=== PATIENT | male | born 1955 | race Caucasian/White ===

== ENCOUNTER 2021-09-13 12:46 | Inpatient (IN) | payer MEDICARE, OTHER ==
[2021-09-13] MEDS ORDERED: Acetaminophen 325 MG Tab PO PRN (13:06)
[2021-09-13] MEDS: Sodium Chloride 0.9% 10 ML Syringe FLUSH PRN ×2 (14:44→16:16)
[2021-09-13] MEDS: Pantoprazole 40 MG Vial IVPUSH SCH ×2 (14:44→20:15)
[2021-09-13] MEDS: Sodium Chloride 0.9% 1,000 ML IV SCH (14:49)
[2021-09-13] MEDS: Ondansetron 4 MG/2 ML SDV IV PRN (16:16)
[2021-09-14] MEDS: Sodium Chloride 0.9% 1,000 ML IV SCH ×2 (00:59→08:35)
[2021-09-14 07:13] LABS: ANION GAP 11.9 mmol/L (5-15)
[2021-09-14] MEDS ORDERED: Potassium Chloride 10 MEQ Tab.ER PO STA (07:53)
[2021-09-14] MEDS: Ondansetron 4 MG/2 ML SDV IV PRN (08:35)
[2021-09-14] MEDS: Cyanocobalamin (Vitamin B12) 1,000 MCG Tab PO SCH (08:35)
[2021-09-14] MEDS: Pantoprazole 40 MG Vial IVPUSH SCH ×2 (08:35→20:20)
[2021-09-14] MEDS: Cholecalciferol (Vitamin D3) 25 MCG Tab PO SCH (08:36)
[2021-09-14] MEDS: Calcium Carbonate 750 MG Tab.Chew PO SCH (08:36)
[2021-09-14] MEDS: Sodium Chloride 0.9% 10 ML Syringe FLUSH PRN ×2 (08:39→20:20)
[2021-09-14] MEDS: Potassium Chloride 10 MEQ Tab.ER PO SCH ×2 (14:19→17:56)
[2021-09-14] MEDS ORDERED: Iopamidol 755 Mg/ML 100 ML Bottle IVPUSH ONE (14:26)
[2021-09-15 06:44] LABS: ANION GAP 12.6 mmol/L (5-15)
[2021-09-15] MEDS: Sodium Chloride 0.9% 10 ML Syringe FLUSH PRN ×2 (07:39→13:01)
[2021-09-15] MEDS: Cyanocobalamin (Vitamin B12) 1,000 MCG Tab PO SCH (07:39)
[2021-09-15] MEDS: Potassium Chloride 10 MEQ Tab.ER PO SCH ×2 (07:39→17:59)
[2021-09-15] MEDS: Cholecalciferol (Vitamin D3) 25 MCG Tab PO SCH (07:39)
[2021-09-15] MEDS: Pantoprazole 40 MG Vial IVPUSH SCH (07:39)
[2021-09-15] MEDS: Calcium Carbonate 750 MG Tab.Chew PO SCH (07:39)
[2021-09-15] MEDS: Ondansetron 4 MG/2 ML SDV IV PRN (07:40)
[2021-09-15] MEDS ORDERED: HYDROmorphone 0.5 MG/0.5 ML Syringe IVPUSH PRN (08:33)
[2021-09-15] MEDS: Sodium Chloride 0.9% 1,000 ML IV SCH ×2 (09:23→13:05)
[2021-09-15] MEDS: cefTRIAXone 1 GM Vial IVPUSH SCH (13:01)
[2021-09-15] MEDS: Heparin Sodium 5,000 Units/ML Vial SUBCUT SCH ×2 (13:51→20:17)
[2021-09-15] MEDS: Omeprazole 20 MG Cap.CR PO SCH (16:38)
[2021-09-16] MEDS: Omeprazole 20 MG Cap.CR PO SCH ×2 (07:02→17:39)
[2021-09-16 07:23] LABS: ANION GAP 12.7 mmol/L (5-15)
[2021-09-16] MEDS: cefTRIAXone 1 GM Vial IVPUSH SCH (08:57)
[2021-09-16] MEDS: Sodium Chloride 0.9% 10 ML Syringe FLUSH PRN (09:03)
[2021-09-16] MEDS: Heparin Sodium 5,000 Units/ML Vial SUBCUT SCH (09:04)
[2021-09-16] MEDS: Cholecalciferol (Vitamin D3) 25 MCG Tab PO SCH (09:04)
[2021-09-16] MEDS: Potassium Chloride 10 MEQ Tab.ER PO SCH ×2 (09:04→17:39)
[2021-09-16] MEDS: Cyanocobalamin (Vitamin B12) 1,000 MCG Tab PO SCH (09:04)
[2021-09-16] MEDS: Calcium Carbonate 750 MG Tab.Chew PO SCH (09:11)
[2021-09-16] MEDS ORDERED: DULoxetine 20 MG Cap PO SCH (10:15)
== END 2021-09-16 18:20 | disposition home health service (06) | DRG 811 ==
LOC: VM.MS 12:46
PROVIDERS: ADMIT Internal Medicine; ATTEND Internal Medicine
PROC: 30233N1 Transfusion of Nonautologous Red Blood Cells into Peripheral Vein, Percutaneous Approach (ICD-10-PCS; principal; 2021-09-13)
DX: D62 Acute posthemorrhagic anemia (principal); J18.9 Pneumonia, unspecified organism; K92.2 Gastrointestinal hemorrhage, unspecified; C7A.019 Malignant carcinoid tumor of the small intestine, unspecified portion; K50.90 Crohn's disease, unspecified, without complications; F84.0 Autistic disorder; E46 Unspecified protein-calorie malnutrition; I10 Essential (primary) hypertension; N28.9 Disorder of kidney and ureter, unspecified; Z20.822 Contact with and (suspected) exposure to COVID-19; E87.6 Hypokalemia; F43.21 Adjustment disorder with depressed mood; Z68.38 Body mass index [BMI] 38.0-38.9, adult; Z90.89 Acquired absence of other organs; Z98.890 Other specified postprocedural states
CPT/HCPCS: 36415; 36430; 71046; 74174; 80048; 80053; 81001; 82274; 83690; 83735; 85014; 85018; 85025; 85610; 85652; 86140; 86850; 86900; 86901; 86920; 86922; 97129-GO; 97161-GP; A9270-GY; C9113; J0696; J1170; J1644; J2405; J3490; J7030; P9016; Q9967; U0002

== ENCOUNTER 2021-10-01 19:49 | Emergency (ER) | payer MEDICARE, OTHER ==
[2021-10-01] MEDS ORDERED: Sodium Chloride 0.9% 10 ML Syringe FLUSH PRN (19:56)
[2021-10-01] MEDS: Sodium Chloride 0.9% 1,000 ML IV SCH (20:19)
[2021-10-01 20:32] LABS: PTT,PARTIAL THROMBOPLSTIN TIME 29.7 SEC (20.5-30.9)
[2021-10-01 20:40] LABS: ANION GAP 17.9 mmol/L (5-15); CHLORIDE,CL 101 mmol/L (98-107); SODIUM,NA 136 mmol/L (136-145)
[2021-10-01] MEDS: Piperacillin/Tazobactam 3.375 GM in Sodium Chloride 0.9% 100 ML IV ONE (20:53)
[2021-10-01] MEDS: Morphine 4 MG/ML Syringe IVPUSH ONE ×2 (20:53→21:58)
[2021-10-01] MEDS: Ondansetron 4 MG/2 ML SDV IVPUSH ONE (20:54)
[2021-10-01] MEDS: Iopamidol 612 MG/ML 100 ML Bottle IVPUSH ONE (21:36)
[2021-10-01 21:44] LABS: CORONAVIRUS COVID-19 NAA NEGATIVE (NEGATIVE); RESPIRATORY SYNCYTIAL VIR NAA NEGATIVE (NEGATIVE)
[2021-10-01] MEDS ORDERED: Sodium Chloride 0.9% 1,000 ML IV ONE (22:29)
== END 2021-10-01 22:45 | disposition short-term general hospital (02) ==
LOC: VM.ED 19:49
DX: R10.9 Unspecified abdominal pain (principal); I10 Essential (primary) hypertension; E66.9 Obesity, unspecified; Z68.36 Body mass index [BMI] 36.0-36.9, adult; Z79.899 Other long term (current) drug therapy; Z79.01 Long term (current) use of anticoagulants; Z20.822 Contact with and (suspected) exposure to COVID-19
CPT/HCPCS: 0241U; 36415; 71045; 74177; 80053; 81001; 82150; 83605; 83690; 83735; 84100; 84484; 85025; 85610; 85730; 86140; 87040; 93005; 93010; 96365; 96375; 96376; 99284; 99285-25; J2270; J2405; J2543; J7030; Q9967